=== PATIENT | male | born 1985 | race Caucasian/White ===

== ENCOUNTER → 2019-01-11 | Outpatient (REF) | payer OTHER | LOC: M SFHCLERA 15:45 | PROVIDERS: ATTEND Physician Assistant | DX: J02.9 Acute pharyngitis, unspecified (principal) ==

== ENCOUNTER → 2020-02-23 | Outpatient (REF) | payer OTHER | LOC: M SFHCCLAY 09:45 | PROVIDERS: ATTEND Family Medicine | DX: F32.1 Major depressive disorder, single episode, moderate (principal) ==

== ENCOUNTER → 2020-02-24 | Outpatient (CLI) | payer OTHER ==
--- NOTE | 2020-02-24 20:39 | REP ---
INDICATION: N50.89 TESTICULAR SWELLING ,LT COMPARISON: None. TECHNIQUE: Luque scale and color Doppler evaluation using linear and curved array transducer with color Doppler evaluation. FINDINGS: The testicles and epididymi are relatively normal in contour, size, echogenicity, vascularity and overall appearance. There is no evidence for intratesticular mass lesion, infectious/inflammatory process, or torsion. No obvious varicoceles are identified. Large bilateral hydroceles with floating debris are identified (left greater than right) and consistent with the patient's swelling. No further abnormalities are identified. Right testicle measures 3.1 x 2.8 x 3.2 cm. Left testicle measures 3.3 x 3.2 x 3.1 cm. IMPRESSION: Large bilateral hydroceles consistent with the patient's swelling. Normal testicles and epididymi. <Electronically signed by Evan Corley > 02/24/20 [id number]
== END ==
LOC: M WHC 14:54
PROVIDERS: ATTEND Family Medicine
DX: N50.89 Other specified disorders of the male genital organs (principal)

== ENCOUNTER → 2020-05-18 | Outpatient (REF) | payer OTHER ==
[2020-05-19 13:37] LABS: HEMOGLOBIN 15.6 g/dl (13.5-17.5); MEAN CORPUSCULAR HEMOGLOBIN 29.1 pg (27.0-33.0); MEAN CORPUSCULAR HGB CONC 33.2 g/dl (32.0-36.5); MEAN CORPUSCULAR VOLUME 87.5 fl (80.0-96.0); PLATELET COUNT, AUTOMATED 264 10^3/uL (150-450); RED BLOOD COUNT 5.37 10^6/uL (4.30-6.10); WHITE BLOOD COUNT 7.5 10^3/uL (4.0-10.0)
[2020-05-19 14:04] LABS: BLOOD UREA NITROGEN 15 MG/DL (7-18); CALCIUM LEVEL 9.5 MG/DL (8.5-10.1); CARBON DIOXIDE LEVEL 27 MEQ/L (21-32); CHLORIDE LEVEL 107 MEQ/L (98-107); CREATININE FOR GFR 0.77 MG/DL (0.70-1.30); GLOMERULAR FILTRATION RATE > 60.0 (>60); GLUCOSE, FASTING 71 MG/DL (70-100); POTASSIUM SERUM 4.9 MEQ/L (3.5-5.1); SODIUM LEVEL 140 MEQ/L (136-145)
== END ==
LOC: M LABDRAWC 11:09
PROVIDERS: ATTEND Urology
DX: Z30.2 Encounter for sterilization (principal); N43.3 Hydrocele, unspecified

== ENCOUNTER → 2020-05-29 | Outpatient (CLI) | payer OTHER ==
[~2020-05-29] MED LIST: CITA20TA6
== END ==
LOC: M LABSMTC 09:33
PROVIDERS: ATTEND Anesthesiology
DX: Z01.812 Encounter for preprocedural laboratory examination (principal); Z20.822 Contact with and (suspected) exposure to COVID-19

== ENCOUNTER 2020-06-03 10:09 | Day surgery (SDC) | payer OTHER ==
[~2020-06-03] VITALS: Ht 195.6 cm; Wt 134.7 kg
[~2020-06-03 10:09] MED LIST changes: +LIDOCAINE 1% MDV 20ML VIAL SQ PRN; +LR 1,000 ML IV ONE; +ceFAZolin SOD 2 GM in IV 1 EA IV ONE
[2020-06-03] MEDS ORDERED: BACITRACIN OINTMENT 30GM TUBE As Ordered ONE (10:28)
[2020-06-03] MEDS ORDERED: LIDOCAINE 1% SDV 30ML VIAL As Ordered ONE (10:29)
[2020-06-03] MEDS ORDERED: BUPIVACAINE HCL 0.25% 30ML VIAL As Ordered ONE (10:29)
[2020-06-03] MEDS ORDERED: ACETAMINOPHEN 1000MG 100ML IV BTL (OFIRMEV) (J0131 PER 10MG) As Ordered ONE (10:47)
[2020-06-03] MEDS ORDERED: LIDOCAINE 2% 100MG/5ML SDV (FOR ANES.) As Ordered ONE (10:47)
[2020-06-03] MEDS ORDERED: propofoL 200 MG/20 ML VIAL As Ordered ONE (10:47)
[2020-06-03] MEDS ORDERED: KETOROLAC 60MG 2ML VIAL As Ordered ONE (10:47)
[2020-06-03] MEDS ORDERED: ONDANSETRON 4MG/2ML VIAL As Ordered ONE (10:47)
[2020-06-03] MEDS ORDERED: dexameTHASONE 4 MG/ML 1ML VIAL (J1100 PER 1MG) As Ordered ONE (10:47)
[2020-06-03] MEDS ORDERED: MIDAZOLAM INJ 2MG/2ML VIAL (J2250 PER 1MG) As Ordered ONE (10:48)
[2020-06-03] MEDS ORDERED: fentaNYL 100 MCG/2 ML INJECTION (J3010) As Ordered ONE (10:48)
[2020-06-03] MEDS ORDERED: ONDANSETRON 4MG/2ML VIAL IV PRN (15:15)
[2020-06-03] MEDS ORDERED: oxyCODONE 5MG TAB PO PRN (15:15)
[2020-06-03] MEDS ORDERED: HYDROMORPHONE HCL 0.5 MG/ 0.5 ML SYRINGE (J1170 PER 1) IV PRN (15:15)
[2020-06-03] MEDS ORDERED: LR 1,000 ML IV SCH (15:15)
[2020-06-03] MEDS ORDERED: fentaNYL 100 MCG/2 ML INJECTION (J3010) IV PRN (15:15)
[2020-06-03] MEDS ORDERED: PERCOCET 5MG/325MG TAB PO PRN (15:20)
[2020-06-03] MEDS ORDERED: OXYC1TAB23 PO (15:28)
--- NOTE | 2020-06-03 16:16 | RO ---
OPERATIVE NOTE DATE OF OPERATION: 06/03/2020 PREOPERATIVE DIAGNOSES: 1. Bilateral hydroceles. 2. Elective sterilization. POSTOPERATIVE DIAGNOSES: 1. Bilateral hydrocele. 2. Elective sterilization. PROCEDURES: 1. Bilateral hydrocelectomy. 2. Bilateral vasectomy. SURGEON: Brigido Chavira MD. SPORTS PHYSIOLOGIST: None. ANESTHESIA: General. OPERATIVE INDICATIONS: This is a 34-year-old male with moderate size bilateral hydroceles, which made performing a vasectomy in office not possible to do. He is brought to the operating room today to treat his hydroceles and to perform a vasectomy. DESCRIPTION OF PROCEDURE: The patient was brought to the operating room and general anesthesia was induced. Prophylactic antibiotics were infused. He was placed in the supine position, prepped and draped in the usual sterile fashion. At this point, an approximately 3-4 cm transverse incision was made over the right hemiscrotum. I dissected down through the scrotal wall layers. The testicle was then delivered outside of the right hemiscrotum inside the tunica vaginalis. The tunica vaginalis was then opened and approximately 50 mL of simple appearing fluid was drained from the hydrocele sac. The hydrocele sac was completely excised and sent off as right hydrocele sac for pathology. I then over-sewed the edges of the hydrocele sac by using a running 3-0 Vicryl suture. Once that was done, a right-sided vasectomy was performed. The vas deferens was then isolated inside the spermatic cord. The sheath overlying the vas deferens was opened. At this point, an approximately 2 cm segment of vas deferens was excised from the right vas deferens. Both ends of the vas deferens were also ligated with metal clips and cauterized on both sides. Once that was done, we checked for hemostasis in the right testicle and hemiscrotum. Any areas of bleeding were controlled with electrocautery. Once satisfied with hemostasis, the testicle was delivered back into the right hemiscrotum in its normal anatomic position. After that was done, the dartos muscle was closed with a running 3-0 Vicryl suture. The skin was then reapproximated with interrupted 2-0 Chromic suture. After that was done, I then turned my attention to the left side and the exact same procedure was performed on the left side. The fluid from the hydrocele sac appeared simple as well. Once the left side was completed, it was also closed in a similar fashion as the right side. Once the left-sided incision was closed, local anesthetic was applied to both incisions. Dressings were then applied and this marked conclusion of the procedure. The patient was then awakened from anesthesia and transported to the recovery room in stable condition. ESTIMATED BLOOD LOSS: 15 mL. COMPLICATIONS: None. SPECIMENS: Bilateral hydrocele sacs, segments of right and left vasa deferentia. PLAN: The patient will follow-up in the urology clinic in approximately two to three weeks for a postoperative visit. We will also have him do a postvasectomy semen analysis approximately eight weeks from now. VALDO
[2020-06-03 16:45] VITALS: BP 135/82
== END 2020-06-03 16:45 | disposition home or self-care (01) ==
LOC: M SDC 10:09
PROVIDERS: ATTEND Urology
DX: N43.3 Hydrocele, unspecified (principal); Z30.2 Encounter for sterilization; F41.9 Anxiety disorder, unspecified; F32.9 Major depressive disorder, single episode, unspecified; Z79.899 Other long term (current) drug therapy
CPT/HCPCS: 55041; 55250; 88302; J0131; J0690; J1100; J1885; J2250; J2405; J3010

== ENCOUNTER 2024-02-05 08:20 | Emergency (ER) | payer OTHER ==
[~2024-02-05] VITALS: Ht 195.6 cm; Wt 128.0 kg
[~2024-02-05 08:20] MED LIST changes: -LIDOCAINE 1% MDV 20ML VIAL SQ PRN; -LR 1,000 ML IV ONE; +OXYC1TAB23 PO; -ceFAZolin SOD 2 GM in IV 1 EA IV ONE
[2024-02-05 08:32] VITALS: BP 145/98; TEMP 98.7; O2SAT 99
[2024-02-05 09:11] LABS: HEMATOCRIT 48.3 % (42.0-52.0); HEMOGLOBIN 16.4 g/dl (13.5-17.5); MEAN CORPUSCULAR HEMOGLOBIN 29.2 pg (27.0-33.0); MEAN CORPUSCULAR VOLUME 85.9 fl (80.0-96.0); PLATELET COUNT, AUTOMATED 245 10^3/uL (150-450); RED BLOOD COUNT 5.62 10^6/uL (4.30-6.10); WHITE BLOOD COUNT 7.6 10^3/uL (4.0-10.0)
[2024-02-05 09:31] LABS: METHADONE URINE NEGATIVE (NEGATIVE)
[2024-02-05 09:32] LABS: AMPHETAMINES LEVEL URINE NEGATIVE (NEGATIVE); BARBITURATES URINE NEGATIVE (NEGATIVE); BENZODIAZEPINES URINE NEGATIVE (NEGATIVE); CANNABINOIDS URINE NEGATIVE (NEGATIVE); COCAINE METABOLITE URINE NEGATIVE (NEGATIVE); OPIATES URINE NEGATIVE (NEGATIVE); PHENCYCLIDINE URINE NEGATIVE (NEGATIVE)
[2024-02-05 09:33] LABS: ETHYL ALCOHOL (ETHANOL) < 0.003 % (0.000-0.010)
[2024-02-05 09:35] LABS: SALICYLATE LEVEL < 3.0 MG/DL (<30)
[2024-02-05 09:36] LABS: ALBUMIN 4.3 G/DL (3.2-5.2); ALKALINE PHOSPHATASE 67 U/L (40-129); ALT/SGPT 37 U/L (7.0-40); AST/SGOT 23 U/L (<34); BILIRUBIN,DIRECT 0.3 MG/DL (<0.4); BILIRUBIN,TOTAL 0.8 MG/DL (0.3-1.2); BLOOD UREA NITROGEN 18 MG/DL (9-23); CALCIUM LEVEL 9.7 MG/DL (8.5-10.1); CARBON DIOXIDE LEVEL 24 MMOL/L (20-31); CHLORIDE LEVEL 110 MMOL/L (98-107); CREATININE FOR GFR 0.88 MG/DL (0.70-1.30); GLOMERULAR FILTRATION RATE > 60.0 (>60); GLUCOSE, FASTING 95 MG/DL (60-100); SODIUM LEVEL 144 MMOL/L (136-145); TOTAL PROTEIN 7.7 G/DL (5.7-8.2)
[2024-02-05 09:38] LABS: THYROID STIMULATING HORMONE 0.588 uIU/ML (0.55-4.78)
== END 2024-02-05 11:45 | disposition home or self-care (01) ==
LOC: M ED 08:20
DX: F43.21 Adjustment disorder with depressed mood (principal); F10.10 Alcohol abuse, uncomplicated; Z79.899 Other long term (current) drug therapy; Z79.1 Long term (current) use of non-steroidal anti-inflammatories (NSAID)

== ENCOUNTER → 2024-08-25 | Outpatient (REF) | LOC: M LAB 13:22 | PROVIDERS: ATTEND Family Medicine | DX: Z01.89 Encounter for other specified special examinations (principal) ==

== ENCOUNTER → 2025-01-13 | Outpatient (CLI) | payer OTHER | LOC: M CLY 15:30 | PROVIDERS: ATTEND Nurse Practitioner Family | DX: M51.16 Intervertebral disc disorders with radiculopathy, lumbar region (principal) ==